=== PATIENT | female | born 1945 | race Caucasian/White ===

== ENCOUNTER 2017-09-24 19:40 | Emergency (ER) | payer MEDICARE, OTHER ==
[2017-09-24] MEDS ORDERED: Albuterol/Ipratropium 3.0-0.5 MG/3 ML Neb Soln INH ONE (19:50)
[2017-09-24] MEDS ORDERED: Albuterol/Ipratropium 3.0-0.5 MG/3 ML Neb Soln ONE (20:01)
[2017-09-24 20:47] VITALS: BP 145/71
--- NOTE | 2017-09-24 20:59 | EDM.PDOC ---
ED HPI GENERAL MEDICAL PROBLEM - General Chief Complaint: Respiratory Problem Stated Complaint: SOB Time Seen by Provider: 09/24/17 19:40 Source of Information: Reports: Patient, Old Records, RN History Limitations: Reports: No Limitations - History of Present Illness INITIAL COMMENTS - FREE TEXT/NARRATIVE: 71-year-old female with history of truck chronic COPD, atrial fibrillation presents to the emergency room brought in by EMS with complaints of increased shortness of breath. She is on home oxygen anywhere between 2 and 4 L. She states at rest she feels fairly comfortable but anytime she exerts herself or tries to walk she's becomes increasingly short of breath. She has complaints of dizziness. She states neither the shortness of breath or dizziness or uncommon for her but she did feel that this was possibly slightly worse than her normal. She denies chest pain or palpitations. She denies any headache. She denies visual changes. She denies difficulty with speech. She denies change in her gait. At rest she feels that both the shortness of breath and her symptoms seem to improve. When EMS came to her apartment evaluated her O2 saturations were 78% . She has improved nicely on 4 L of oxygen running now in the 95th to 96 percentile. She is talkative communicative without much difficulty. Onset: Today Onset Date: 09/24/17 Onset Time: 16:00 Duration: Hour(s):, Waxing/Waning Location: Reports: Generalized Severity: Mild Improves with: Reports: Other (Oxygen) Worsens with: Reports: Movement (Ambulation) Associated Symptoms: Reports: Shortness of Breath, Weakness, Other (Dizziness). 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 - Related Data Allergies Allergy/AdvReac Type Severity Reaction Status Date / Time albuterol Allergy Dizziness Verified 09/24/17 19:45 ipratropium Allergy Dizziness Verified 09/24/17 19:45 prednisone Allergy Change Verified 09/24/17 19:45 Mental Status Sulfa (Sulfonamide Allergy Swelling Verified 09/24/17 19:45 Antibiotics) Home Meds: Home Meds Arformoterol [Brovana] 15 mcg NEB BIDRT 05/09/15 [History] Budesonide [Pulmicort] 0.5 mg NEB BIDRT 05/09/15 [History] Escitalopram [Lexapro] 15 mg PO DAILY 06/29/15 [History] Furosemide [Lasix] 20 mg PO DAILY 06/29/15 [History] Potassium Chloride 20 meq PO DAILY 06/29/15 [History] metFORMIN [Glucophage] 500 mg PO BID 06/29/15 [History] Acetaminophen [Tylenol] 650 mg PO Q6HR PRN 09/24/17 [History] Aspirin 81 mg PO DAILY 09/24/17 [History] Diltiazem HCl [Tiazac] 120 mg PO DAILY 09/24/17 [History] Iron Polysaccharide Complex [Poly-Iron] 1 cap PO DAILY 09/24/17 [History] Multivitamin with Minerals [Multiple Vitamin] 1 tab PO ASDIRECTED 09/24/17 [ History] Pimecrolimus [Elidel] 1 applic TOP BID 09/24/17 [History] atorvaSTATin [Lipitor] 5 mg PO DAILY 09/24/17 [History] clonazePAM [Klonopin] 0.5 mg PO DAILY PRN 09/24/17 [History] Past Medical History HEENT History: Reports: Impaired Vision Cardiovascular History: Reports: Afib, SOB on Exertion Respiratory History: Reports: COPD, Other (See Below) Other Respiratory History: On home oxygen at 2L Gastrointestinal History: Reports: GI Bleed, Hemorrhoids [employer] History: Reports: , Spontaneous Psychiatric History: Reports: Anxiety, Depression Endocrine/Metabolic History: Reports: Diabetes, Type II, Obesity/BMI 30+ Hematologic History: Reports: Anemia - Infectious Disease History Infectious Disease History: Reports: Chicken Pox, Measles, Mumps - Past Surgical History HEENT Surgical History: Reports: Adenoidectomy, Tonsillectomy Social & Family History - Family History Family Medical History: Noncontributory - Tobacco Use Smoking Status *Q: Former Smoker Years of Tobacco use: 54 Used Tobacco, but Quit: Yes Month/Year Tobacco Last Used: 2009 - Caffeine Use Caffeine Use: Reports: Coffee, Soda - Recreational Drug Use Recreational Drug Use: No ED ROS GENERAL - Review of Systems Review Of Systems: See Below Constitutional: Reports: Weakness, Fatigue HEENT: Reports: Glasses Respiratory: Reports: Shortness of Breath. Denies: Wheezing, Cough, Sputum, Hemoptysis Cardiovascular: Reports: Other (Irregular heart rate, atrial fibrillation chronic). Denies: Chest Pain, Blood Pressure Problem Endocrine: Reports: High Glucose GI/Abdominal: Denies: Abdominal Pain, Diarrhea, Vomiting : Reports: No Symptoms Musculoskeletal: Reports: No Symptoms Skin: Denies: Cyanosis, Jaundice, Pruritis, Rash Neurological: Reports: Dizziness. Denies: Headache, Numbness, Paresthesia, Syncope, Tingling, Trouble Speaking, Change in Speech, Gait Disturbance Psychiatric: Reports: Depression Hematologic/Lymphatic: Reports: Easy Bleeding Immunologic: Reports: No Symptoms ED EXAM, GENERAL - Physical Exam Exam: See Below Exam Limited By: Other (Poor historian) General Appearance: Alert, WD/WN, No Apparent Distress Eye Exam: Bilateral Eye: EOMI Ears: Normal Canal, Hearing Grossly Normal Nose: Normal Inspection Throat/Mouth: Normal Inspection, Normal Voice, No Airway Compromise Head: Atraumatic Neck: Normal Inspection, Supple Respiratory/Chest: Decreased Breath Sounds (Throughout the lungs bilaterally poor airway movement) Cardiovascular: Regular Rate, Rhythm Peripheral Pulses: 2+: Carotid (L), Carotid (R) GI/Abdominal: Soft, No Mass Back Exam: Normal Inspection Extremities: Normal Inspection. No: Pedal Edema Neurological: Alert, Oriented, Normal Cognition, No Motor/Sensory Deficits Psychiatric: Normal Affect, Normal Mood Skin Exam: Warm, Dry, Intact, Normal Color, No Rash Lymphatic: No Adenopathy EKG INTERPRETATION EKG Date: 09/24/17 Time: 19:58 Rhythm: A-Fib Rate (Beats/Min): 89 [place]: Normal P-Wave: Variable QRS: Normal ST-T: Normal QT: Normal Comparison: No Change (06/30/15) EKG Interpretation Comments: Atrial fibrillation Abnormal ECG Course - Vital Signs Last Recorded V/S: Last Vital Signs Temp 97.3 F 09/24/17 19:48 Pulse 70 09/24/17 20:45 Resp 22 H 09/24/17 20:45 BP 145/71 H 09/24/17 20:45 Pulse Ox 91 L 09/24/17 20:45 - Orders/Labs/Meds Orders: Active Orders 24 hr Category Date Time Status EKG Documentation Completion [RC] ASDIRECTED Care 09/24/17 20:07 Active CXR [Chest 2V] [CR] Stat Exams 09/24/17 20:06 Taken Sodium Chloride 0.9% [Normal Saline] 1,000 ml Med 09/24/17 21:17 Ordered IV .BOLUS EKG 12 Lead [EK] Routine Ther 09/24/17 20:07 Ordered Medication Orders Sodium Chloride (Normal Saline) 1,000 mls @ 1,000 mls/hr IV .BOLUS ONE Stop: 09/24/17 22:16 Last Admin: 09/24/17 21:29 Dose: 1,000 mls/hr Labs: Laboratory Tests 09/24/17 09/24/17 Range/Units 20:35 20:35 WBC 7.7 (5.0-10.0) 10^3/uL RBC 3.87 (3.80-5.50) 10^6/uL Hgb 11.9 L D (12.0-16.0) g/dL Hct 38.5 (37.0-47.0) % MCV 99.5 H D (82.0-92.0) fL MCH 30.7 (27.0-31.0) pg MCHC 30.9 L (32.0-36.0) g/dL RDW 13.4 (11.5-14.5) % Plt Count 189 (150-300) 10^3/uL MPV 8.0 (7.4-10.4) fL Neut % (Auto) 69.3 (50.0-70.0) % Lymph % (Auto) 19.6 L (20.0-40.0) % [place] % (Auto) 7.1 (2.0-8.0) % Eos % (Auto) 1.7 (1.0-3.0) % Baso % (Auto) 2.3 H (0.0-1.0) % Neut # (Auto) 5.4 (2.5-7.0) 10^3/uL Lymph # (Auto) 1.5 (1.0-4.0) 10^3/uL [place] # (Auto) 0.5 (0.1-0.8) 10^3/uL Eos # (Auto) 0.1 (0.1-0.3) 10^3/uL Baso # (Auto) 0.2 H (0.0-0.1) 10^3/uL Sodium 146 H (136-145) mmol/L Potassium 4.4 (3.3-5.3) mmol/L Chloride 103 (98-115) mmol/L Carbon Dioxide 43.1 H D (21.0-32.0) mmol/L BUN 23 (6-25) mg/dL Creatinine 1.27 H (0.51-1.17) mg/dL Est Cr Clr Drug Dosing 38.59 mL/min Estimated GFR (MDRD) 42 mL/min Glucose 123 H (70-110) mg/dL Calcium 9.2 (8.7-10.3) mg/dL Troponin I < 0.04 (0.00-0.070) ng/mL B-Natriuretic Peptide 110 H (0-100) pg/mL Meds: Medications Generic Name Dose Route Start Last Admin Trade Name Freq PRN Reason Stop Dose Admin Sodium Chloride 1,000 mls @ 1,000 mls/hr 09/24/17 21:17 09/24/17 21:29 Normal Saline IV 09/24/17 22:16 1,000 mls/hr .BOLUS ONE Administration Discontinued Medications Generic Name Dose Route Start Last Admin Trade Name Freq PRN Reason Stop Dose Admin Albuterol/Ipratropium Confirm 09/24/17 20:01 09/24/17 20:04 Duoneb 3.0-0.5 Mg/3 Ml Administered 09/24/17 20:02 3 ml Dose Administration 3 ml .ROUTE .STK-MED ONE - Re-Assessments/Exams Free Text/Narrative Re-Assessment/Exam: 09/24/17 21:41 Patient is maintaining 92-94% on 4 L of oxygen in the emergency room. When we change her to her portable oxygen also at 4 L she drops down to 81%. This makes me concerned that her portable oxygen is not working correctly. She will need to have this checked. Departure - Departure Time of Disposition: 22:35 Disposition: Home, Self-Care 01 Condition: Fair Clinical Impression: COPD exacerbation - Discharge Information Instructions: Chronic Obstructive Pulmonary Disease Exacerbation Referrals: Kinza Tello PA-C [Primary Care Provider] - Forms: ED Department Discharge - My Orders Last 24 Hours: My Active Orders 09/24/17 20:06 CXR [Chest 2V] [CR] Stat 09/24/17 20:07 EKG Documentation Completion [RC] ASDIRECTED EKG 12 Lead [EK] Routine 09/24/17 21:17 Sodium Chloride 0.9% [Normal Saline] 1,000 ml IV .BOLUS - Assessment/Plan Last 24 Hours: My Active Orders 09/24/17 20:06 CXR [Chest 2V] [CR] Stat 09/24/17 20:07 EKG Documentation Completion [RC] ASDIRECTED EKG 12 Lead [EK] Routine 09/24/17 21:17 Sodium Chloride 0.9% [Normal Saline] 1,000 ml IV .BOLUS Assessment:: Exacerbation of COPD Plan: 1. Rest throughout the weekend. Avoid exposure out into the extreme heat and humidity. 2. Continue with her regular home medications. 3. Recommend follow-up with your primary care next week. 4. Shortness of breath exacerbation worsens despite your medications and home oxygen encourage follow-up in the emergency room. 5. Your portable oxygen machine does not maintain her O2 saturation like it does on your main oxygen. You should continue with your main oxygen at home and have your portable oxygen evaluated before going back to this.
[2017-09-24 21:12] LABS: CHLORIDE,CL 103 mmol/L (98-115); SODIUM,NA 146 mmol/L (136-145)
[2017-09-24] MEDS ORDERED: Sodium Chloride 0.9% 1,000 ML IV ONE (21:17)
== END 2017-09-24 22:35 | disposition home or self-care (01) ==
LOC: KA.ED 19:40 → SUPCPDRO 19:40 → KA.ED 22:35
DX: J44.1 Chronic obstructive pulmonary disease with (acute) exacerbation (principal); I48.91 Unspecified atrial fibrillation; J44.9 Chronic obstructive pulmonary disease, unspecified; D64.9 Anemia, unspecified; E11.9 Type 2 diabetes mellitus without complications; E66.9 Obesity, unspecified; Z99.81 Dependence on supplemental oxygen; Z88.2 Allergy status to sulfonamides; Z88.8 Allergy status to other drugs, medicaments and biological substances; Z79.82 Long term (current) use of aspirin; Z79.899 Other long term (current) drug therapy; Z87.891 Personal history of nicotine dependence; Z68.37 Body mass index [BMI] 37.0-37.9, adult
CPT/HCPCS: 36415; 71046; 80048; 83880; 84484; 85025; 94640; 96360; 99285; J7030; 93005; 99284

== ENCOUNTER 2018-07-03 09:04 | Day surgery (SDC) | payer MEDICARE, OTHER ==
[~2018-07-03 09:04] MED LIST: Moxifloxacin 0.5% Ophth Soln 3 ML Bottle EYELF SCH; Sodium Chloride 0.9% 1,000 ML IV SCH; Sodium Chloride 0.9% 10 ML Syringe FLUSH PRN
[2018-07-03] MEDS: Cyclopentolate 1% Opth Soln 2 ML Bottle EYELF SCH ×3 (09:27→09:48)
[2018-07-03] MEDS: Phenylephrine 10% Ophth Soln 5 ML Bot EYELF SCH ×3 (09:32→10:02)
[2018-07-03] MEDS ORDERED: Carbachol 0.01% Intraocular 1.5 ML Vial EYELF ONE (10:25)
[2018-07-03] MEDS ORDERED: Lidocaine 2% with EPINEPHrine 1:100,000 20 ML MDV INJECT ONE (10:25)
[2018-07-03] MEDS ORDERED: Water For Irrigation,Sterile 1,500 ML Container IRR ONE ×2 (10:25→10:59)
[2018-07-03] MEDS ORDERED: Hyaluronate Sodium 1% 0.85 ML Syringe IOCULAR ONE (10:25)
[2018-07-03] MEDS ORDERED: Dexamethasone/Neomycin/Polymyxin B Ophth Oint 3.5 GM Tube EYELF ONE (10:25)
[2018-07-03] MEDS ORDERED: Tetracaine HCl/PF 0.5% 4 ML Bottle EYEBOTH ONE (10:25)
[2018-07-03] MEDS ORDERED: Lidocaine 1% 10 ML MDV INJECT ONE (10:25)
[2018-07-03] MEDS ORDERED: Balanced Salt Solution Plus Ophth Irrig 500 ML Bottle IOCULAR ONE (10:25)
[2018-07-03] MEDS ORDERED: Balanced Salt Solution Ophth Irrig 15 ML Bottle EYELF ONE (10:25)
[2018-07-03] MEDS ORDERED: EPINEPHrine 1 MG/ML SDV ONE (10:25)
[2018-07-03 10:49] VITALS: BP 129/63
--- NOTE | 2018-07-04 10:01 | OR ---
DATE OF SURGERY: 07/03/2018 SURGEON: Curtis Montenegro MD PREOPERATIVE DIAGNOSIS: Cataract, left eye. POSTOPERATIVE DIAGNOSIS: Cataract, left eye. OPERATION PERFORMED: Phacoemulsification with posterior chamber lens insertion, left eye. HISTORY: The patient presents at this time with increasing amount of difficulty seeing to use the left eye as she tries to read and also she has oncoming glare with car lights. Vision in the left eye is 20/70. The left lens has a 3+ nuclear sclerosis, 1+ cortical change, and a 1 to 2+ posterior subcapsular change. This eye has a combined cataract and a cataract of aging. FINDINGS: The patient was taken to the operating room where appropriate anesthesia, sedation and monitoring were provided. A retrobulbar block was given on the left side. The eye was massaged and was found to be appropriately soft. The eye and eyelids were then prepped and draped in the usual sterile manner. A lid speculum was placed. A micro sharp blade was used to enter the anterior chamber inside the limbus inferior-temporally. Xylocaine was irrigated into the eye at this site. Healon was irrigated into the eye through this site. Then using a 2.85 mm corneal blade an entry was made into the anterior chamber just inside the limbus temporally. Healon was again irrigated into the eye. Then using a cystitome, the anterior capsulorrhexis was created. The lens nucleus was hydrodissected using a 27 gauge cannula and balanced salt solution. The phacoemulsification unit was introduced through the temporal site and the Scooter spatula through the inferior temporal site. In so doing, the lens nucleus was phacoemulsified. The cortical fragments of the lens were removed using the irrigation aspiration unit. The posterior capsule was polished. Healon was irrigated into the eye. The posterior chamber lens was inserted and rotated into position inside the capsular bag. The Healon was irrigated out of the eye. Miostat was irrigated into the eye and the pupil rounded nicely. A single interrupted 10-0 Nylon suture was placed through the temporal corneal incision site. Balanced salt solution was irrigated into the eye. The wound was tested and found to be tight. Maxitrol ointment was placed into the patient's left eye. The eyelids were closed and an eye patch and boswell shield were placed. The patient left the operating room in good condition. /[id number]/MODL
== END 2018-07-03 11:07 | disposition home or self-care (01) ==
LOC: KA.SDS 09:04
PROVIDERS: ATTEND Ophthalmology
DX: E11.36 Type 2 diabetes mellitus with diabetic cataract (principal); H25.812 Combined forms of age-related cataract, left eye; I50.30 Unspecified diastolic (congestive) heart failure; J44.9 Chronic obstructive pulmonary disease, unspecified; I27.20 Pulmonary hypertension, unspecified; I48.2 Chronic atrial fibrillation; I48.1 Persistent atrial fibrillation; F32.9 Major depressive disorder, single episode, unspecified; Z87.891 Personal history of nicotine dependence; Z79.01 Long term (current) use of anticoagulants; Z79.899 Other long term (current) drug therapy; Z88.2 Allergy status to sulfonamides
CPT/HCPCS: 00142; 82962; A9270-GY; C1780; J0171; J2001; J7030

== ENCOUNTER 2018-09-04 06:45 | Day surgery (SDC) | payer MEDICARE, OTHER ==
[2018-09-04] MEDS ORDERED: Moxifloxacin 0.5% Ophth Soln 3 ML Bottle EYERT SCH (06:50)
[2018-09-04] MEDS ORDERED: Sodium Chloride 0.9% 10 ML Syringe FLUSH PRN (06:50)
[2018-09-04] MEDS ORDERED: Sodium Chloride 0.9% 1,000 ML IV SCH (06:50)
[2018-09-04] MEDS: Cyclopentolate 1% Opth Soln 2 ML Bottle EYERT SCH ×3 (07:08→07:31)
[2018-09-04] MEDS: Phenylephrine 10% Ophth Soln 5 ML Bot EYERT SCH ×3 (07:13→07:36)
[2018-09-04] MEDS ORDERED: Balanced Salt Solution Plus Ophth Irrig 500 ML Bottle IOCULAR ONE (08:43)
[2018-09-04] MEDS ORDERED: Water For Irrigation,Sterile 1,500 ML Container IRR ONE (08:43)
[2018-09-04] MEDS ORDERED: Balanced Salt Solution Ophth Irrig 15 ML Bottle EYERT ONE (08:43)
[2018-09-04] MEDS ORDERED: Carbachol 0.01% Intraocular 1.5 ML Vial EYERT ONE (08:44)
[2018-09-04] MEDS ORDERED: EPINEPHrine 1 MG/ML SDV ONE (08:44)
[2018-09-04] MEDS ORDERED: Lidocaine 1% 10 ML MDV INJECT ONE (08:45)
[2018-09-04] MEDS ORDERED: Lidocaine 2% with EPINEPHrine 1:100,000 20 ML MDV INJECT ONE (08:45)
[2018-09-04] MEDS ORDERED: Dexamethasone/Neomycin/Polymyxin B Ophth Oint 3.5 GM Tube EYERT ONE (08:45)
[2018-09-04] MEDS ORDERED: Hyaluronate Sodium 1% 0.85 ML Syringe IOCULAR ONE (08:46)
[2018-09-04] MEDS ORDERED: Tetracaine HCl/PF 0.5% 4 ML Bottle EYEBOTH ONE (08:46)
[2018-09-04 08:58] VITALS: BP 137/63
--- NOTE | 2018-09-04 12:05 | OR ---
DATE OF SURGERY: 09/04/2018 SURGEON: Curtis Montenegro MD PREOPERATIVE DIAGNOSIS: Cataract, right eye. POSTOPERATIVE DIAGNOSIS: Cataract, right eye. OPERATION: Phacoemulsification with posterior chamber lens insertion right eye. HISTORY: The patient presents at this time with an increasing amount of difficulty seeing to read using the right eye. This eye has a 3+ nuclear sclerosis, 1+ cortical change, and a 1+ posterior subcapsular change. This eye has a combined cataract and a cataract of aging. FINDINGS: The patient was taken to the operating room where appropriate anesthesia, sedation and monitoring were provided. A retrobulbar block was given on the right side. The eye was massaged and was found to be appropriately soft. The eye and eyelids were then prepped and draped in the usual sterile manner. A lid speculum was placed. A micro sharp blade was used to enter the anterior chamber inside the limbus superior-temporally. Xylocaine was irrigated into the eye at this site. Healon was irrigated into the eye through this site. Then using a 2.85 mm corneal blade an entry was made into the anterior chamber just inside the limbus temporally. Healon was again irrigated into the eye. Then using a cystitome, the anterior capsulorrhexis was created. The lens nucleus was hydrodissected using a 27 gauge cannula and balanced salt solution. The phacoemulsification unit was introduced through the temporal site and the Scooter spatula through the superior temporal site. In so doing, the lens nucleus was phacoemulsified. The cortical fragments of the lens were removed using the irrigation aspiration unit. The posterior capsule was polished. Healon was irrigated into the eye. The posterior chamber lens was inserted and rotated into position inside the capsular bag. The Healon was irrigated out of the eye. Miostat was irrigated into the eye and the pupil rounded nicely. A single interrupted 10-0 Nylon suture was placed through the temporal corneal incision site. Balanced salt solution was irrigated into the eye. The wound was tested and found to be tight. Maxitrol ointment was placed into the patient's right eye. The eyelids were closed and an eye patch and boswell shield were placed. The patient left the operating room in good condition. /[id number]/MODL
== END 2018-09-04 09:22 | disposition home or self-care (01) ==
LOC: KA.SDS 06:45
PROVIDERS: ATTEND Ophthalmology
DX: H25.811 Combined forms of age-related cataract, right eye (principal); Z96.1 Presence of intraocular lens; I48.91 Unspecified atrial fibrillation; E11.9 Type 2 diabetes mellitus without complications; J44.1 Chronic obstructive pulmonary disease with (acute) exacerbation; J96.21 Acute and chronic respiratory failure with hypoxia; F33.9 Major depressive disorder, recurrent, unspecified; I50.30 Unspecified diastolic (congestive) heart failure; D50.0 Iron deficiency anemia secondary to blood loss (chronic); F41.9 Anxiety disorder, unspecified; Z79.84 Long term (current) use of oral hypoglycemic drugs; Z79.82 Long term (current) use of aspirin; Z79.899 Other long term (current) drug therapy; Z88.2 Allergy status to sulfonamides; Z99.89 Dependence on other enabling machines and devices
CPT/HCPCS: 00142; 82962; A9270-GY; C1780; J0171; J2001; J7030